=== PATIENT | male | born 2000 | race Caucasian/White ===

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

== ENCOUNTER 2019-06-28 17:15 | Emergency (ER) | payer MEDICAID, SELFPAY ==
[2019-06-28 17:16] VITALS: BP 156/72; PULSE 94; RESP 16; TEMP 36.6; O2SAT 100; BMI 34.6
--- NOTE | 2019-06-28 18:07 | ED.DCSUM_ITS ---
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 Does not wear contacts. 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 He states sawdust was blowing around because was very windy at the time and he thought he got sawdust in his eye. He irrigated it profusely at home, but the symptoms persist. He has developed a right-sided headache as well. Past Medical History - Allergies and Home Meds Allergies/Adverse Reactions: Allergies No Known Allergies Allergy (Verified 06/28/19 17:17) Primary Care Physician: Ellie López MD [STAFF PHYSICIAN] - 1 Day for another exam (Call for appointment time in the morning) Krissy Taylor NP-C [Primary Care Provider] - Past Medical History: None Lives: With Family Smoking Status: Never smoker Review of Systems General: Denies: Chills, Fever, Sweats Eyes: Reports: Blurred vision - right - See HPI, - - Right eye pain and foreign body sensation. Denies: Diplopia ENT: Denies: Bilateral ear pain, Rhinorrhea, Sore throat Cardiovascular: Denies: Chest pain, Palpitations Respiratory: Denies: Dyspnea, Cough Gastrointestinal: Denies: Nausea, Vomiting Skin: Denies: Rash, Abscess, Wounds Neurological: Reports: Headache. Denies: Weakness, Parasthesia, Numbness Physical Exam Visual Acuity: bilateral: 20/20 - And each eye individually Visual Acuity: Uncorrected Eyelid: Normal inspection, Right eyelid everted, No foreign body Right Conjunctiva/Sclera: Diffuse focal injection - Diffuse mild, - - No exudates, icterus, chemosis, foreign body on gross inspection Left Conjunctiva/Sclera: Normal inspection Right Cornea: Normal inspection, No foreign body, No abrasion, No dye uptake, Tetracaine instilled - With resolution of pain temporarily Extraocular Motion: Normal exam, No pain, No palsy, No nystagmus Anterior chamber: Normal exam, Deep and quiet Right intraocular pressure: 30, 35 Vital Signs/Narrative: Vital Signs Temp Pulse Resp BP Pulse Ox 06/28/19 17:16 98 F 94 16 156/72 H 100 General: Well nourished, Well developed, - - nad Head: Normocephalic, Atraumatic Neurological: Alert, Oriented x3, Cranial nerves II-XII grossly intact, Normal Strength, Normal Sensation, Normal Gait Psychological: Normal affect, Normal Mood Diagnostic/Tx/Re-eval - Treatment and Re-Evaluation Tetracaine: right eye - With resolution of pain Antibiotic: right eye - Medical Decision Making Since no obvious areas of dye uptake on the cornea were seen, nor the conjunctive that could explain the persistent symptoms, I checked his pressure and it is 30 with 1 set and 35 with the other. This is with a Betito-Pen, both indicating less than 5% error in between readings. I discussed with Dr. López who was on-call for ophthalmology, she agrees with aggressively irrigating before discharge on antibiotic ointment and outpatient follow-up if symptoms persist. His vision is normal. This pain resolved with tetracaine, I do not think he has acute angle-closure glaucoma given these things. She is in agreement. ED Disposition - Plan for ED Patient: Diagnosis: Foreign body of eye, external, right Instructions: CORNEAL FOREIGN BODY, Removed Referrals: Krissy Taylor, [employer]-C [Primary Care Provider] - Ellie López MD [STAFF PHYSICIAN] - 3-5 Days if not improving () Additional Instructions: Use antibiotic ointment 3 times a day, or up to every hour as needed for discomfort if you wish
[2019-06-28] MEDS: Fluorescein 1 MG STRIP 1 STRIP RIGHT EYE (19:31)
[2019-06-28] MEDS: Tetracaine 0.5% Ophthalmic Bottle 1 DRP RIGHT EYE (19:32)
[2019-06-28] MEDS: Erythromycin Base 1 OPTH.TUBE 1 APPLIC RIGHT EYE (20:38)
[2019-06-28] MEDS: Ibuprofen 600 MG Tablet PO (20:44)
== END 2019-06-28 20:46 | disposition home or self-care (01) ==
PROVIDERS: Emergency Provider Emergency Medicine; Family Provider Nurse Practitioner Family; PCP Nurse Practitioner Family
DX: T15.01XA Foreign body in cornea, right eye, initial encounter (principal)
CPT/HCPCS: 99285; J7030